=== PATIENT | female | born 1945 | race Caucasian/White ===

== ENCOUNTER 2023-02-14 10:49 | Inpatient (IN) | payer OTHER ==
[~2023-02-14] VITALS: Ht 162.6 cm; Wt 82.6 kg
[2023-02-14 11:04] VITALS: BP 112/60; PULSE 89; RESP 16; TEMP 97.4; O2SAT 98
[2023-02-14] MEDS ORDERED: PIPERACILLIN/TAZOBACTAM 3.375 GM in DEXT 5% MINI-BAG PLUS 50 ML IV ONE (11:10)
[2023-02-14] MEDS: NACL 0.9% 2,000 ML IV SCH ×2 (11:13→13:08)
[2023-02-14] MEDS ORDERED: PIPERACILLIN/TAZOBACTAM 3.375 GM VIAL IV ONE (11:15)
[2023-02-14 11:38] LABS: BASOPHILS # (AUTO) 0.1 K/uL (0.00-0.22); BASOPHILS % (AUTO) 0.5 % (0.0-2.0); HEMATOCRIT 34.7 % (36-48); HEMOGLOBIN 11.2 g/dL (12.0-16.0); LYMPHOCYTES # (AUTO) 2.5 K/uL (2.5-16.5); MEAN CORPUSCULAR HEMOGLOBIN 28 pg (27-31); MEAN CORPUSCULAR HGB CONC 32 g/dL (33-37); MONOCYTES # (AUTO) 0.8 K/uL (0.8-1.0); MONOCYTES % (AUTO) 5.1 % (1.7-9.3); NEUTROPHILS # (AUTO) 12.4 K/uL (1.8-7.7); NEUTROPHILS % (AUTO) 78.4 % (42.2-75.2); PLATELET COUNT (AUTO) 184 K/uL (140-450); RED BLOOD CELL COUNT(AUTO) 4.04 MIL/uL (4.20-5.40); RED CELL DISTRIBUTION WIDTH 14.7 % (11.6-13.7); WHITE BLOOD COUNT (AUTO) 15.8 K/uL (4.8-10.8)
[2023-02-14 11:57] LABS: INR 1.11 (0.8-1.2); PARTIAL THROMBOPLASTIN TIME 35.7 secs (22-35.6); PROTHROMBIN TIME 11.5 secs (10.8-13.4)
[2023-02-14 12:00] LABS: ALANINE AMINOTRANSFERASE 17 U/L (12-78); ALBUMIN 2.6 g/dL (3.4-5.0); ALKALINE PHOSPHATASE 57 U/L (50-136); ANION GAP 14.2 (8-16); ASPARTATE AMINOTRANSFERASE 23 U/L (15-37); CALCIUM 9.5 mg/dL (8.5-10.1); CARBON DIOXIDE 24.4 mmol/L (21-32); CHLORIDE 101 mmol/L (98-107); CREATININE 1.6 mg/dL (0.6-1.3); GLUCOSE 131 mg/dL (74-106); POTASSIUM 3.6 mmol/L (3.5-5.1); SODIUM SERUM 136 mmol/L (136-145); TOTAL BILIRUBIN 0.5 mg/dL (0.0-1.0); TOTAL PROTEIN, SERUM 7.1 g/dL (6.4-8.2); UREA NITROGEN, BLOOD 36 mg/dL (7-18)
[2023-02-14 12:25] LABS: LACTIC ACID 3.4 mmol/L (0.4-2.0)
[2023-02-14] MEDS ORDERED: KCL 20 MEQ IN 100 mL PREMIX 200 ML IV PRN (13:00)
[2023-02-14] MEDS ORDERED: HYDROcodone/APAP 5/325 MG 1 TAB TAB PO PRN (13:00)
[2023-02-14] MEDS ORDERED: ACETAMINOPHEN 325 MG TAB PO PRN (13:00)
[2023-02-14] MEDS ORDERED: MORPHINE SULFATE 2 MG/ML SYR IVP PRN (13:00)
[2023-02-14] MEDS ORDERED: MAGNESIUM OXIDE 400 MG TAB PO PRN (13:00)
[2023-02-14] MEDS ORDERED: POTASSIUM CHLORIDE 10 MEQ TABER PO PRN (13:00)
[2023-02-14] MEDS ORDERED: ONDANSETRON 4 MG/2 ML VIAL IVP PRN (13:00)
[2023-02-14] MEDS ORDERED: ASPIRIN 81 MG TAB.CHEW PO ONE (13:00)
[2023-02-14] MEDS: NACL 0.9% 1,000 ML IV SCH (13:00)
[2023-02-14 13:04] VITALS: O2SAT 96
[2023-02-14] MEDS ORDERED: DEXTROSE 50% 50 ML SYR IVP PRN (13:05)
[2023-02-14] MEDS ORDERED: ASCO-5 PO (14:12)
[2023-02-14] MEDS ORDERED: GLUC1VIA IJ (14:12)
[2023-02-14] MEDS ORDERED: METF-713 PO (14:12)
[2023-02-14] MEDS ORDERED: LOSA-272 PO (14:12)
[2023-02-14] MEDS ORDERED: NUTR30LI3 PO (14:12)
[2023-02-14] MEDS ORDERED: APIX5TAB PO (14:12)
[2023-02-14] MEDS ORDERED: INSU100S22 SUBQ (14:12)
[2023-02-14] MEDS ORDERED: MIRT-120 PO (14:12)
[2023-02-14] MEDS ORDERED: DOCU-2 PO (14:12)
[2023-02-14] MEDS ORDERED: METO100T22 PO (14:12)
[2023-02-14] MEDS ORDERED: GLUC1PDS1 IJ (14:12)
[2023-02-14] MEDS ORDERED: [UNRECOGNIZED DRUG - CODE] IV (14:12)
[2023-02-14] MEDS ORDERED: INSU-1165 SUBQ (14:12)
[2023-02-14] MEDS ORDERED: BISA-246 RC (14:12)
[2023-02-14] MEDS ORDERED: [UNRECOGNIZED DRUG - CODE] PO (14:12)
[2023-02-14] MEDS ORDERED: MAGN400S60 PO (14:12)
[2023-02-14] MEDS ORDERED: ACET-10509 PO (14:12)
[2023-02-14] MEDS ORDERED: FLEPED RC (14:12)
[2023-02-14] MEDS ORDERED: CRAN400C2 PO (14:12)
[2023-02-14] MEDS ORDERED: [UNRECOGNIZED DRUG - CODE] PO (14:12)
[2023-02-14] MEDS ORDERED: LACT500C2 PO (14:12)
[2023-02-14 14:35] LABS: BILIRUBIN,URINE NEGATIVE (NEGATIVE); BLOOD, URINE 3+ (NEGATIVE); LEUKOCYTE ESTERASE ,URINE 2+ (NEGATIVE); NITRITE, URINE POSITIVE (NEGATIVE); PROTEIN,URINE 2+ (NEGATIVE); UGLUCOSE NEGATIVE (NEGATIVE); UROBILINOGEN,URINE 0.2 EU/dL (0.2 - 1)
[2023-02-14 14:45] LABS: APPEARANCE,URINE CLOUDY (CLEAR); COLOR,URINE AMBER (YELLOW)
[2023-02-14 14:50] LABS: BACTERIA,URINE 10-30 (MOD) /HPF (None Seen); MUCUS,URINE 1+ /LPF (None Seen); RBC,URINE 11-20 (MOD) /HPF (0-5); SQUAMOUS EPITHELIAL CELL,UR 0-3 (FEW) /LPF (0-3 (FEW))
[2023-02-14] MEDS ORDERED: NACL 0.9% 500 ML IV SCH (15:50)
[2023-02-14 16:00] VITALS: BP 113/58; PULSE 103; PULSE 139; RESP 18; TEMP 98.9; O2SAT 98
[2023-02-14 16:30] VITALS: PULSE 98; RESP 18; O2SAT 98
[2023-02-14] MEDS: BLOOD GLUCOSE MONITORING 1 DEV DEV FS SCH ×2 (16:30→21:24)
[2023-02-14] MEDS ORDERED: METOPROLOL 5 MG/5 ML VIAL IV PRN (17:45)
[2023-02-14 20:00] VITALS: BP 72/40; PULSE 125; PULSE 126; RESP 22; TEMP 98.9; O2SAT 93; O2SAT 94
[2023-02-14 20:09] VITALS: PULSE 129; RESP 22; O2SAT 93
[2023-02-14] MEDS ORDERED: NACL 0.9% 500 ML IV ONE (20:50)
[2023-02-14] MEDS ORDERED: MIDODRINE 5 MG TAB PO ONE (20:52)
[2023-02-14] MEDS ORDERED: METOPROLOL 50 MG TAB PO SCH (21:00)
[2023-02-14] MEDS ORDERED: APIXABAN 2.5 MG TAB PO SCH (21:00)
[2023-02-14] MEDS: PIPERACILLIN/TAZOBACTAM 2.25 GM in DEXTROSE 5% 50 ML IV SCH (21:16)
[2023-02-14] MEDS: MIRTAZAPINE 15 MG TAB PO SCH (21:17)
[2023-02-14] MEDS ORDERED: MIDODRINE 5 MG TAB ONE (22:39)
[2023-02-14] MEDS ORDERED: ALBUMIN HUMAN 25% 100 ML IV ONE (23:40)
[2023-02-15] VITALS (37 sets, daily range): BP systolic 59–155; BP diastolic 23–79; PULSE 8–125; RESP 16–32; TEMP 36.4; O2SAT 92–100
[2023-02-15] MEDS ORDERED: NOREPINEPHRINE 4 MG/4 ML VIAL IV ONE ×2 (01:12→05:37)
[2023-02-15] MEDS: NOREPINEPHRINE 4 MG in DEXTROSE 5% 250 ML IV PRN ×5 (01:15→23:08)
[2023-02-15] MEDS: NACL 0.9% 1,000 ML IV SCH ×2 (01:30→14:45)
[2023-02-15] MEDS ORDERED: HEPARIN PER PHARMACY MC PRN (02:25)
[2023-02-15] MEDS ORDERED: hePARIN / DEXT 5% PREMIX 250 ML IV SCH (02:25)
[2023-02-15] MEDS: methylPREDNISolone SS 40 MG/ML VIAL IVP SCH ×3 (03:00→21:09)
[2023-02-15] MEDS ORDERED: VASOPRESSIN 20 UNITS/ML VIAL ONE (03:33)
[2023-02-15] MEDS: VASOPRESSIN 20 UNITS in NACL 0.9% 250 ML IV SCH ×2 (03:43→12:18)
[2023-02-15] MEDS: PIPERACILLIN/TAZOBACTAM 2.25 GM in DEXTROSE 5% 50 ML IV SCH ×3 (05:14→21:08)
[2023-02-15 06:36] LABS: HEMATOCRIT 32.4 % (36-48); HEMOGLOBIN 10.4 g/dL (12.0-16.0); MEAN CORPUSCULAR HEMOGLOBIN 28 pg (27-31); MEAN CORPUSCULAR HGB CONC 32 g/dL (33-37); MEAN CORPUSCULAR VOLUME 86.8 fL (80-94); PLATELET COUNT (AUTO) 165 K/uL (140-450); RED BLOOD CELL COUNT(AUTO) 3.73 MIL/uL (4.20-5.40); RED CELL DISTRIBUTION WIDTH 15.1 % (11.6-13.7); WHITE BLOOD COUNT (AUTO) 20.2 K/uL (4.8-10.8)
[2023-02-15 06:42] LABS: APPEARANCE,URINE CLEAR (CLEAR); BILIRUBIN,URINE NEGATIVE (NEGATIVE); BLOOD, URINE 3+ (NEGATIVE); COLOR,URINE YELLOW (YELLOW); LEUKOCYTE ESTERASE ,URINE 3+ (NEGATIVE); NITRITE, URINE POSITIVE (NEGATIVE); PH,URINE 7.5 (5.0-9.0); PROTEIN,URINE 3+ (NEGATIVE); UGLUCOSE NEGATIVE (NEGATIVE); UROBILINOGEN,URINE 0.2 EU/dL (0.2 - 1)
[2023-02-15 06:56] LABS: ALANINE AMINOTRANSFERASE 15 U/L (12-78); ALBUMIN 2.8 g/dL (3.4-5.0); ALKALINE PHOSPHATASE 47 U/L (50-136); ANION GAP 21.9 (8-16); ASPARTATE AMINOTRANSFERASE 36 U/L (15-37); CARBON DIOXIDE 17.5 mmol/L (21-32); CHLORIDE 104 mmol/L (98-107); CREATININE 1.7 mg/dL (0.6-1.3); GLUCOSE 185 mg/dL (74-106); POTASSIUM 3.4 mmol/L (3.5-5.1); SODIUM SERUM 140 mmol/L (136-145); TOTAL BILIRUBIN 0.8 mg/dL (0.0-1.0); TOTAL PROTEIN, SERUM 6.6 g/dL (6.4-8.2); UREA NITROGEN, BLOOD 36 mg/dL (7-18)
[2023-02-15 06:59] LABS: MAGNESIUM 0.8 mg/dL (1.8-2.4)
[2023-02-15 07:02] LABS: BASOPHILS % (MANUAL) 0 % (0-2); EOSINOPHILS % (MANUAL) 0 % (0-4); LYMPHOCYTES % (MANUAL) 20 % (20-46); METAMYELOCYTES % 4 % (0-0); MONOCYTES % (MANUAL) 3 % (5-12); MYELOCYTES % 2 % (0-0); PLATELET ESTIMATE ADEQUATE; SMUDGE CELLS FEW
[2023-02-15 07:03] LABS: BURR CELLS 2+; POIKILOCYTOSIS 1+
[2023-02-15] MEDS: MAG SULF 2000 MG/WATER PREMIX 50 ML IV PRN (07:10)
[2023-02-15] MEDS: BLOOD GLUCOSE MONITORING 1 DEV DEV FS SCH ×4 (07:30→21:19)
[2023-02-15 07:38] LABS: BACTERIA,URINE 2+ /HPF (None Seen); RBC,URINE 20-50 /HPF (0-5); SQUAMOUS EPITHELIAL CELL,UR 4-10 (MOD) /LPF (0-3 (FEW)); WBC,URINE 80-100 /HPF (0-5)
[2023-02-15] MEDS: TAMSULOSIN 0.4 MG CAP PO SCH (08:30)
[2023-02-15] MEDS: ATORVASTATIN 20 MG TAB PO SCH (09:00)
[2023-02-15] MEDS: INSULIN LANTUS 100 UNITS/ML 10 ML VIAL SUBQ SCH (09:00)
[2023-02-15] MEDS: ASPIRIN 81 MG TAB.CHEW PO SCH (09:00)
[2023-02-15] MEDS: MIDODRINE 5 MG TAB PO SCH ×3 (09:00→16:57)
[2023-02-15] MEDS: INSULIN LISPRO SLIDING SCALE 100 UNITS/ML VIAL SUBQ PRN ×3 (09:05→16:43)
[2023-02-15] MEDS: PANTOPRAZOLE 40 MG INJ VIAL IVP SCH (09:17)
[2023-02-15] MEDS ORDERED: KCL 20 MEQ IN 100 mL PREMIX 200 ML IV ONE (18:00)
[2023-02-15] MEDS: MIRTAZAPINE 15 MG TAB PO SCH (21:10)
[2023-02-16] VITALS (26 sets, daily range): BP systolic 92–141; BP diastolic 53–86; PULSE 67–99; RESP 15–29; TEMP 96.2–97.8; O2SAT 92–100
[2023-02-16] MEDS ORDERED: VASOPRESSIN 20 UNITS/ML VIAL ONE ×3 (04:36→21:38)
[2023-02-16] MEDS ORDERED: VASOPRESSIN 40 UNITS in NACL 0.9% 250 ML IV SCH ×2 (04:50→06:00)
[2023-02-16] MEDS: PIPERACILLIN/TAZOBACTAM 2.25 GM in DEXTROSE 5% 50 ML IV SCH (05:42)
[2023-02-16] MEDS: NOREPINEPHRINE 4 MG in DEXTROSE 5% 250 ML IV PRN ×3 (05:58→16:42)
[2023-02-16] MEDS: INSULIN LISPRO SLIDING SCALE 100 UNITS/ML VIAL SUBQ PRN ×3 (06:10→21:22)
[2023-02-16] MEDS: BLOOD GLUCOSE MONITORING 1 DEV DEV FS SCH ×5 (06:13→21:50)
[2023-02-16 07:36] LABS: ALANINE AMINOTRANSFERASE 60 U/L (12-78); ALBUMIN 2.2 g/dL (3.4-5.0); ALKALINE PHOSPHATASE 58 U/L (50-136); ANION GAP 18.9 (8-16); ASPARTATE AMINOTRANSFERASE 120 U/L (15-37); CALCIUM 8.5 mg/dL (8.5-10.1); CARBON DIOXIDE 15.2 mmol/L (21-32); CHLORIDE 103 mmol/L (98-107); CREATININE 1.7 mg/dL (0.6-1.3); GLUCOSE 230 mg/dL (74-106); MAGNESIUM 1.3 mg/dL (1.8-2.4); POTASSIUM 4.1 mmol/L (3.5-5.1); SODIUM SERUM 133 mmol/L (136-145); TOTAL BILIRUBIN 0.6 mg/dL (0.0-1.0); TOTAL PROTEIN, SERUM 6.1 g/dL (6.4-8.2); UREA NITROGEN, BLOOD 38 mg/dL (7-18)
[2023-02-16 07:41] LABS: HEMATOCRIT 33.1 % (36-48); HEMOGLOBIN 10.6 g/dL (12.0-16.0); MEAN CORPUSCULAR HEMOGLOBIN 28 pg (27-31); MEAN CORPUSCULAR HGB CONC 32 g/dL (33-37); MEAN CORPUSCULAR VOLUME 86.1 fL (80-94); PLATELET COUNT (AUTO) 155 K/uL (140-450); RED BLOOD CELL COUNT(AUTO) 3.84 MIL/uL (4.20-5.40); RED CELL DISTRIBUTION WIDTH 15.5 % (11.6-13.7)
[2023-02-16 07:43] LABS: WHITE BLOOD COUNT (AUTO) 37.6 K/uL (4.8-10.8)
[2023-02-16 08:25] LABS: BASOPHILS % (MANUAL) 0 % (0-2); EOSINOPHILS % (MANUAL) 1 % (0-4); LYMPHOCYTES % (MANUAL) 4 % (20-46); MONOCYTES % (MANUAL) 5 % (5-12); PLATELET ESTIMATE ADEQUATE
[2023-02-16 08:45] LABS: INR 1.49 (0.8-1.2); PROTHROMBIN TIME 15.3 secs (10.8-13.4)
[2023-02-16 08:53] LABS: PARTIAL THROMBOPLASTIN TIME > 150.0 secs (22-35.6)
[2023-02-16] MEDS ORDERED: MEROPENEM 1,000 MG in NACL 0.9% 50 ML IV SCH ×2 (09:00→21:00)
[2023-02-16] MEDS: MIDODRINE 5 MG TAB PO SCH ×4 (09:00→17:00)
[2023-02-16] MEDS: ATORVASTATIN 20 MG TAB PO SCH (09:15)
[2023-02-16] MEDS: TAMSULOSIN 0.4 MG CAP PO SCH (09:15)
[2023-02-16] MEDS: PANTOPRAZOLE 40 MG INJ VIAL IVP SCH (09:16)
[2023-02-16] MEDS: methylPREDNISolone SS 40 MG/ML VIAL IVP SCH ×2 (09:16→21:00)
[2023-02-16] MEDS: INSULIN LANTUS 100 UNITS/ML 10 ML VIAL SUBQ SCH (09:24)
[2023-02-16] MEDS: ASPIRIN 81 MG TAB.CHEW PO SCH (09:27)
[2023-02-16] MEDS: MAG SULF 2000 MG/WATER PREMIX 50 ML IV PRN ×2 (09:59→15:32)
[2023-02-16] MEDS ORDERED: NOREPINEPHRINE 4 MG/4 ML VIAL IV ONE ×2 (10:45→22:33)
[2023-02-16] MEDS ORDERED: LIDOCAINE MPF 1% 10 ML ONE (12:51)
[2023-02-16] MEDS ORDERED: MIDAZOLAM 2 MG/2 ML VIAL ONE ×2 (13:14→13:55)
[2023-02-16] MEDS ORDERED: LIDOCAINE MPF 1% 5 ML ONE (13:33)
[2023-02-16] MEDS ORDERED: LIDOCAINE MPF 1% 15 ML ONE (13:41)
[2023-02-16] MEDS ORDERED: fentaNYL citrate 0.05 MG/ML VIAL ONE ×2 (13:49→14:11)
[2023-02-16] MEDS: NACL 0.9% 1,000 ML IV SCH ×2 (15:00→20:59)
[2023-02-16] MEDS ORDERED: LIDOCAINE 1% 500 MG/ 50 ML VIAL INJ ONE (15:35)
[2023-02-16] MEDS ORDERED: MIDAZOLAM 2 MG/2 ML VIAL IVP ONE (15:50)
[2023-02-16] MEDS ORDERED: fentaNYL citrate 0.05 MG/ML VIAL IVP ONE (16:10)
[2023-02-16] MEDS: MIRTAZAPINE 15 MG TAB PO SCH (21:00)
[2023-02-16] MEDS ORDERED: LEVOFLOXACIN 250 MG/D5 PREMIX 50 ML IV SCH (21:05)
[2023-02-16] MEDS ORDERED: AMIKACIN 500 MG in DEXTROSE 5% 100 ML IV SCH (21:20)
[2023-02-17] VITALS (26 sets, daily range): BP systolic 84–122; BP diastolic 48–101; PULSE 73–110; RESP 13–27; TEMP 96.1–98.7; O2SAT 94–100
[2023-02-17] MEDS: NOREPINEPHRINE 8 MG in DEXTROSE 5% 250 ML IV PRN ×3 (02:29→20:44)
[2023-02-17] MEDS: NACL 0.9% 1,000 ML IV SCH ×3 (03:30→22:41)
[2023-02-17 05:40] LABS: BASOPHILS % (AUTO) 0.1 % (0.0-2.0); EOSINOPHILS # (AUTO) 0.1 K/uL (0-0.4); EOSINOPHILS % (AUTO) 0.5 % (0.0-4.0); HEMATOCRIT 24.5 % (36-48); LYMPHOCYTES % (AUTO) 3.6 % (20.5-51.1); MEAN CORPUSCULAR HEMOGLOBIN 28 pg (27-31); MEAN CORPUSCULAR HGB CONC 33 g/dL (33-37); MEAN CORPUSCULAR VOLUME 84.2 fL (80-94); MONOCYTES # (AUTO) 0.4 K/uL (0.8-1.0); MONOCYTES % (AUTO) 1.3 % (1.7-9.3); NEUTROPHILS # (AUTO) 27.1 K/uL (1.8-7.7); NEUTROPHILS % (AUTO) 94.5 % (42.2-75.2); PLATELET COUNT (AUTO) 129 K/uL (140-450); RED BLOOD CELL COUNT(AUTO) 2.92 MIL/uL (4.20-5.40); RED CELL DISTRIBUTION WIDTH 15.7 % (11.6-13.7)
[2023-02-17 05:44] LABS: WHITE BLOOD COUNT (AUTO) 28.6 K/uL (4.8-10.8)
[2023-02-17 05:47] LABS: ALANINE AMINOTRANSFERASE 92 U/L (12-78); ALKALINE PHOSPHATASE 64 U/L (50-136); ANION GAP 16.7 (8-16); ASPARTATE AMINOTRANSFERASE 122 U/L (15-37); CARBON DIOXIDE 16.2 mmol/L (21-32); CHLORIDE 101 mmol/L (98-107); POTASSIUM 3.9 mmol/L (3.5-5.1); SODIUM SERUM 130 mmol/L (136-145); TOTAL BILIRUBIN 0.5 mg/dL (0.0-1.0); TOTAL PROTEIN, SERUM 5.2 g/dL (6.4-8.2)
[2023-02-17] MEDS ORDERED: AMIKACIN 500 MG/2 ML VIAL IV ONE (06:56)
[2023-02-17 07:02] LABS: ALBUMIN 1.9 g/dL (3.4-5.0); CREATININE 1.9 mg/dL (0.6-1.3); UREA NITROGEN, BLOOD 45 mg/dL (7-18)
[2023-02-17] MEDS ORDERED: VASOPRESSIN 40 UNITS in NACL 0.9% 250 ML IV SCH (07:35)
[2023-02-17 07:37] LABS: MAGNESIUM 2.6 mg/dL (1.8-2.4)
[2023-02-17] MEDS ORDERED: AMIKACIN PER PHARMACY MC PRN (07:40)
[2023-02-17] MEDS ORDERED: MEROPENEM 500 MG in NACL 0.9% 50 ML IV SCH (09:00)
[2023-02-17] MEDS: ASPIRIN 81 MG TAB.CHEW PO SCH ×2 (09:00→09:12)
[2023-02-17] MEDS: BLOOD GLUCOSE MONITORING 1 DEV DEV FS SCH ×4 (09:05→20:38)
[2023-02-17] MEDS: INSULIN LISPRO SLIDING SCALE 100 UNITS/ML VIAL SUBQ PRN (09:08)
[2023-02-17] MEDS: PANTOPRAZOLE 40 MG INJ VIAL IVP SCH (09:11)
[2023-02-17] MEDS: methylPREDNISolone SS 40 MG/ML VIAL IVP SCH ×2 (09:12→20:42)
[2023-02-17] MEDS: ATORVASTATIN 20 MG TAB PO SCH (09:12)
[2023-02-17] MEDS: TAMSULOSIN 0.4 MG CAP PO SCH (09:12)
[2023-02-17] MEDS: MIDODRINE 5 MG TAB PO SCH ×3 (09:13→17:47)
[2023-02-17] MEDS: INSULIN LANTUS 100 UNITS/ML 10 ML VIAL SUBQ SCH (11:15)
[2023-02-17] MEDS ORDERED: ALBUMIN HUMAN 5 % 250 ML IV ONE (11:30)
[2023-02-17] MEDS: VASOPRESSIN 40 UNITS in NACL 0.9% 250 ML IV PRN (15:24)
[2023-02-17] MEDS: MEROPENEM 1,000 MG in NACL 0.9% 50 ML IV SCH (20:42)
[2023-02-17] MEDS: MIRTAZAPINE 15 MG TAB PO SCH (20:43)
[2023-02-18] VITALS (31 sets, daily range): BP systolic 96–139; BP diastolic 51–91; PULSE 69–122; RESP 14–21; TEMP 96.5–97.6; O2SAT 97–100
[2023-02-18 05:24] LABS: BASOPHILS % (AUTO) 0.1 % (0.0-2.0); EOSINOPHILS # (AUTO) 0.1 K/uL (0-0.4); EOSINOPHILS % (AUTO) 0.2 % (0.0-4.0); HEMATOCRIT 21.4 % (36-48); LYMPHOCYTES # (AUTO) 0.9 K/uL (2.5-16.5); LYMPHOCYTES % (AUTO) 3.2 % (20.5-51.1); MEAN CORPUSCULAR HEMOGLOBIN 27 pg (27-31); MEAN CORPUSCULAR HGB CONC 32 g/dL (33-37); MEAN CORPUSCULAR VOLUME 83.7 fL (80-94); MONOCYTES # (AUTO) 0.2 K/uL (0.8-1.0); MONOCYTES % (AUTO) 0.9 % (1.7-9.3); NEUTROPHILS # (AUTO) 25.8 K/uL (1.8-7.7); NEUTROPHILS % (AUTO) 95.6 % (42.2-75.2); PLATELET COUNT (AUTO) 107 K/uL (140-450); RED BLOOD CELL COUNT(AUTO) 2.56 MIL/uL (4.20-5.40); RED CELL DISTRIBUTION WIDTH 15.6 % (11.6-13.7)
[2023-02-18 05:27] LABS: HEMOGLOBIN 6.9 g/dL (12.0-16.0)
[2023-02-18 06:03] LABS: ALANINE AMINOTRANSFERASE 66 U/L (12-78); ALBUMIN 2.1 g/dL (3.4-5.0); ALKALINE PHOSPHATASE 68 U/L (50-136); ANION GAP 15.4 (8-16); ASPARTATE AMINOTRANSFERASE 64 U/L (15-37); CALCIUM 8.3 mg/dL (8.5-10.1); CARBON DIOXIDE 16.4 mmol/L (21-32); CHLORIDE 102 mmol/L (98-107); CREATININE 2.1 mg/dL (0.6-1.3); GLUCOSE 160 mg/dL (74-106); MAGNESIUM 2.2 mg/dL (1.8-2.4); POTASSIUM 3.8 mmol/L (3.5-5.1); SODIUM SERUM 130 mmol/L (136-145); TOTAL BILIRUBIN 0.4 mg/dL (0.0-1.0); TOTAL PROTEIN, SERUM 5.1 g/dL (6.4-8.2); UREA NITROGEN, BLOOD 47 mg/dL (7-18)
[2023-02-18] MEDS: BLOOD GLUCOSE MONITORING 1 DEV DEV FS SCH ×4 (06:42→20:35)
[2023-02-18] MEDS: INSULIN LISPRO SLIDING SCALE 100 UNITS/ML VIAL SUBQ PRN ×4 (06:44→20:36)
[2023-02-18] MEDS: NACL 0.9% 1,000 ML IV SCH (06:45)
[2023-02-18] MEDS: NOREPINEPHRINE 8 MG in DEXTROSE 5% 250 ML IV PRN ×2 (08:47→18:16)
[2023-02-18] MEDS: INSULIN LANTUS 100 UNITS/ML 10 ML VIAL SUBQ SCH (09:15)
[2023-02-18] MEDS: methylPREDNISolone SS 40 MG/ML VIAL IVP SCH ×2 (09:17→20:07)
[2023-02-18] MEDS: PANTOPRAZOLE 40 MG INJ VIAL IVP SCH (09:17)
[2023-02-18] MEDS: ECOTRIN 81 MG TABEC PO SCH (09:18)
[2023-02-18] MEDS: MIDODRINE 5 MG TAB PO SCH ×3 (09:18→16:47)
[2023-02-18] MEDS: ATORVASTATIN 20 MG TAB PO SCH (09:19)
[2023-02-18] MEDS: MEROPENEM 1,000 MG in NACL 0.9% 50 ML IV SCH ×2 (09:20→20:07)
[2023-02-18] MEDS: TAMSULOSIN 0.4 MG CAP PO SCH (09:20)
[2023-02-18 11:18] LABS: HEMOGLOBIN 9.5 g/dL (12.0-16.0)
[2023-02-18] MEDS: VASOPRESSIN 40 UNITS in NACL 0.9% 250 ML IV PRN (12:39)
[2023-02-18] MEDS ORDERED: ALBUMIN HUMAN 5 % 250 ML IV ONE (18:00)
[2023-02-18] MEDS: MIRTAZAPINE 15 MG TAB PO SCH (20:07)
[2023-02-19] VITALS (27 sets, daily range): BP systolic 92–128; BP diastolic 50–76; PULSE 74–97; RESP 13–20; TEMP 97.1–98.5; O2SAT 98–100
[2023-02-19] MEDS: NACL 0.9% 1,000 ML IV SCH ×3 (02:54→21:13)
[2023-02-19 06:02] LABS: BASOPHILS % (AUTO) 0.1 % (0.0-2.0); EOSINOPHILS # (AUTO) 0.4 K/uL (0-0.4); EOSINOPHILS % (AUTO) 1.3 % (0.0-4.0); HEMATOCRIT 25.6 % (36-48); HEMOGLOBIN 8.4 g/dL (12.0-16.0); LYMPHOCYTES % (AUTO) 3.2 % (20.5-51.1); MEAN CORPUSCULAR HEMOGLOBIN 28 pg (27-31); MEAN CORPUSCULAR HGB CONC 33 g/dL (33-37); MEAN CORPUSCULAR VOLUME 84.9 fL (80-94); MONOCYTES # (AUTO) 0.2 K/uL (0.8-1.0); MONOCYTES % (AUTO) 0.6 % (1.7-9.3); NEUTROPHILS # (AUTO) 30.3 K/uL (1.8-7.7); NEUTROPHILS % (AUTO) 94.8 % (42.2-75.2); PLATELET COUNT (AUTO) 118 K/uL (140-450); RED BLOOD CELL COUNT(AUTO) 3.02 MIL/uL (4.20-5.40); RED CELL DISTRIBUTION WIDTH 15.3 % (11.6-13.7)
[2023-02-19 06:19] LABS: WHITE BLOOD COUNT (AUTO) 31.9 K/uL (4.8-10.8)
[2023-02-19 06:25] LABS: ALANINE AMINOTRANSFERASE 63 U/L (12-78); ALBUMIN 2.3 g/dL (3.4-5.0); ALKALINE PHOSPHATASE 85 U/L (50-136); ANION GAP 15.8 (8-16); ASPARTATE AMINOTRANSFERASE 52 U/L (15-37); CALCIUM 8.7 mg/dL (8.5-10.1); CHLORIDE 104 mmol/L (98-107); CREATININE 2.1 mg/dL (0.6-1.3); GLUCOSE 162 mg/dL (74-106); POTASSIUM 3.8 mmol/L (3.5-5.1); SODIUM SERUM 132 mmol/L (136-145); TOTAL BILIRUBIN 0.6 mg/dL (0.0-1.0); TOTAL PROTEIN, SERUM 3.9 g/dL (6.4-8.2); UREA NITROGEN, BLOOD 48 mg/dL (7-18)
[2023-02-19] MEDS: BLOOD GLUCOSE MONITORING 1 DEV DEV FS SCH ×4 (08:13→21:38)
[2023-02-19] MEDS: MEROPENEM 1,000 MG in NACL 0.9% 50 ML IV SCH ×2 (08:16→21:11)
[2023-02-19] MEDS: TAMSULOSIN 0.4 MG CAP PO SCH (08:17)
[2023-02-19] MEDS: PANTOPRAZOLE 40 MG INJ VIAL IVP SCH (08:17)
[2023-02-19] MEDS: MIDODRINE 5 MG TAB PO SCH ×3 (08:21→17:24)
[2023-02-19] MEDS: ECOTRIN 81 MG TABEC PO SCH (08:22)
[2023-02-19] MEDS: ATORVASTATIN 20 MG TAB PO SCH (08:22)
[2023-02-19] MEDS: methylPREDNISolone SS 40 MG/ML VIAL IVP SCH ×2 (08:22→21:11)
[2023-02-19] MEDS: INSULIN LISPRO SLIDING SCALE 100 UNITS/ML VIAL SUBQ PRN ×3 (08:24→17:22)
[2023-02-19] MEDS: INSULIN LANTUS 100 UNITS/ML 10 ML VIAL SUBQ SCH (08:25)
[2023-02-19] MEDS: NOREPINEPHRINE 8 MG in DEXTROSE 5% 250 ML IV PRN (11:52)
[2023-02-19] MEDS: VASOPRESSIN 40 UNITS in NACL 0.9% 250 ML IV PRN ×2 (12:18→15:00)
[2023-02-19] MEDS: MIRTAZAPINE 15 MG TAB PO SCH (21:12)
[2023-02-20] VITALS (26 sets, daily range): BP systolic 95–125; BP diastolic 55–72; PULSE 69–119; RESP 10–21; TEMP 96.9–97.8; O2SAT 93–100
[2023-02-20] MEDS: BLOOD GLUCOSE MONITORING 1 DEV DEV FS SCH ×4 (06:38→21:35)
[2023-02-20] MEDS: NACL 0.9% 1,000 ML IV SCH (08:20)
[2023-02-20] MEDS: TAMSULOSIN 0.4 MG CAP PO SCH (08:21)
[2023-02-20] MEDS: MEROPENEM 1,000 MG in NACL 0.9% 50 ML IV SCH ×2 (08:21→21:01)
[2023-02-20] MEDS: MIDODRINE 5 MG TAB PO SCH ×3 (08:22→17:52)
[2023-02-20] MEDS: ATORVASTATIN 20 MG TAB PO SCH (08:22)
[2023-02-20] MEDS: ECOTRIN 81 MG TABEC PO SCH (08:22)
[2023-02-20] MEDS: PANTOPRAZOLE 40 MG INJ VIAL IVP SCH (08:23)
[2023-02-20] MEDS: methylPREDNISolone SS 40 MG/ML VIAL IVP SCH ×2 (08:23→21:03)
[2023-02-20] MEDS: INSULIN LANTUS 100 UNITS/ML 10 ML VIAL SUBQ SCH (08:27)
[2023-02-20 10:02] LABS: HEMOGLOBIN 10.3 g/dL (12.0-16.0); MEAN CORPUSCULAR HEMOGLOBIN 28 pg (27-31); MEAN CORPUSCULAR HGB CONC 32 g/dL (33-37); MEAN CORPUSCULAR VOLUME 85.2 fL (80-94); PLATELET COUNT (AUTO) 182 K/uL (140-450); RED BLOOD CELL COUNT(AUTO) 3.75 MIL/uL (4.20-5.40); RED CELL DISTRIBUTION WIDTH 16.1 % (11.6-13.7)
[2023-02-20 10:09] LABS: WHITE BLOOD COUNT (AUTO) 43.2 K/uL (4.8-10.8)
[2023-02-20 10:19] LABS: ALANINE AMINOTRANSFERASE 51 U/L (12-78); ALBUMIN 2.3 g/dL (3.4-5.0); ALKALINE PHOSPHATASE 111 U/L (50-136); ANION GAP 15.4 (8-16); ASPARTATE AMINOTRANSFERASE 43 U/L (15-37); CALCIUM 8.8 mg/dL (8.5-10.1); CARBON DIOXIDE 17.3 mmol/L (21-32); CHLORIDE 109 mmol/L (98-107); CREATININE 2.1 mg/dL (0.6-1.3); GLUCOSE 96 mg/dL (74-106); MAGNESIUM 1.9 mg/dL (1.8-2.4); POTASSIUM 3.7 mmol/L (3.5-5.1); SODIUM SERUM 138 mmol/L (136-145); TOTAL BILIRUBIN 0.4 mg/dL (0.0-1.0); UREA NITROGEN, BLOOD 53 mg/dL (7-18)
[2023-02-20 10:28] LABS: BASOPHILS % (MANUAL) 0 % (0-2); BLASTS, MANUAL % 0 % (0-0); EOSINOPHILS % (MANUAL) 0 % (0-4); LYMPHOCYTES % (MANUAL) 6 % (20-46); METAMYELOCYTES % 0 % (0-0); MONOCYTES % (MANUAL) 1 % (5-12); MYELOCYTES % 0 % (0-0); OTHER CELLS,MANUAL % 0 (0-0); PLATELET ESTIMATE ADEQUATE; PROMYELOCYTES % 0 % (0-0)
[2023-02-20 10:29] LABS: ANISOCYTOSIS 1+; BURR CELLS 1+; OVALOCYTES 1+; SCHISTOCYTES 1+
[2023-02-20 15:51] LABS: INR 1.03 (0.8-1.2); PARTIAL THROMBOPLASTIN TIME 26.1 secs (22-35.6); PROTHROMBIN TIME 10.8 secs (10.8-13.4)
[2023-02-20] MEDS ORDERED: ALBUMIN HUMAN 5 % 250 ML IV ONE (17:10)
[2023-02-20] MEDS: ALBUMIN HUMAN 5 % 250 ML IV SCH ×2 (17:53→21:02)
[2023-02-20] MEDS: MIRTAZAPINE 15 MG TAB PO SCH (21:03)
[2023-02-21] VITALS (29 sets, daily range): BP systolic 85–139; BP diastolic 49–72; PULSE 77–125; RESP 12–19; TEMP 97.1–98.5; O2SAT 97–100
[2023-02-21] MEDS: NACL 0.9% 1,000 ML IV SCH ×3 (05:32→15:32)
[2023-02-21] MEDS: methylPREDNISolone SS 40 MG/ML VIAL IVP SCH ×2 (08:07→21:15)
[2023-02-21] MEDS: ECOTRIN 81 MG TABEC PO SCH (08:07)
[2023-02-21] MEDS: TAMSULOSIN 0.4 MG CAP PO SCH (08:07)
[2023-02-21] MEDS: MEROPENEM 1,000 MG in NACL 0.9% 50 ML IV SCH ×2 (08:07→21:16)
[2023-02-21] MEDS: BLOOD GLUCOSE MONITORING 1 DEV DEV FS SCH ×4 (08:07→21:00)
[2023-02-21] MEDS: PANTOPRAZOLE 40 MG INJ VIAL IVP SCH (08:07)
[2023-02-21] MEDS: MIDODRINE 5 MG TAB PO SCH ×3 (08:08→17:00)
[2023-02-21] MEDS: ATORVASTATIN 20 MG TAB PO SCH (08:08)
[2023-02-21] MEDS: INSULIN LANTUS 100 UNITS/ML 10 ML VIAL SUBQ SCH (08:19)
[2023-02-21] MEDS: NOREPINEPHRINE 8 MG in DEXTROSE 5% 250 ML IV PRN (08:24)
[2023-02-21 12:32] LABS: BASOPHILS % (AUTO) 0.1 % (0.0-2.0); HEMATOCRIT 27.5 % (36-48); LYMPHOCYTES # (AUTO) 0.9 K/uL (2.5-16.5); LYMPHOCYTES % (AUTO) 2.3 % (20.5-51.1); MEAN CORPUSCULAR HEMOGLOBIN 28 pg (27-31); MEAN CORPUSCULAR HGB CONC 33 g/dL (33-37); MEAN CORPUSCULAR VOLUME 84.6 fL (80-94); MONOCYTES # (AUTO) 0.2 K/uL (0.8-1.0); MONOCYTES % (AUTO) 0.5 % (1.7-9.3); NEUTROPHILS # (AUTO) 36.8 K/uL (1.8-7.7); NEUTROPHILS % (AUTO) 97.1 % (42.2-75.2); PLATELET COUNT (AUTO) 190 K/uL (140-450); RED BLOOD CELL COUNT(AUTO) 3.25 MIL/uL (4.20-5.40); RED CELL DISTRIBUTION WIDTH 15.8 % (11.6-13.7)
[2023-02-21 12:40] LABS: WHITE BLOOD COUNT (AUTO) 37.9 K/uL (4.8-10.8)
[2023-02-21 12:55] LABS: ALANINE AMINOTRANSFERASE 37 U/L (12-78); ALBUMIN 2.2 g/dL (3.4-5.0); ALKALINE PHOSPHATASE 98 U/L (50-136); ANION GAP 13.5 (8-16); ASPARTATE AMINOTRANSFERASE 36 U/L (15-37); CALCIUM 8.3 mg/dL (8.5-10.1); CARBON DIOXIDE 17.1 mmol/L (21-32); CHLORIDE 114 mmol/L (98-107); CREATININE 1.8 mg/dL (0.6-1.3); GLUCOSE 100 mg/dL (74-106); POTASSIUM 3.6 mmol/L (3.5-5.1); SODIUM SERUM 141 mmol/L (136-145); TOTAL BILIRUBIN 0.5 mg/dL (0.0-1.0); UREA NITROGEN, BLOOD 52 mg/dL (7-18)
[2023-02-21] MEDS: MIRTAZAPINE 15 MG TAB PO SCH (21:16)
[2023-02-22] VITALS (24 sets, daily range): BP systolic 90–138; BP diastolic 48–87; PULSE 73–133; RESP 14–27; TEMP 97.5–98.1; O2SAT 96–100
[2023-02-22] MEDS: NACL 0.9% 1,000 ML IV SCH ×3 (01:21→09:53)
[2023-02-22 05:40] LABS: HEMATOCRIT 24.2 % (36-48); MEAN CORPUSCULAR HEMOGLOBIN 28 pg (27-31); MEAN CORPUSCULAR HGB CONC 33 g/dL (33-37); MEAN CORPUSCULAR VOLUME 84.6 fL (80-94); PLATELET COUNT (AUTO) 218 K/uL (140-450); RED BLOOD CELL COUNT(AUTO) 2.87 MIL/uL (4.20-5.40); RED CELL DISTRIBUTION WIDTH 16.1 % (11.6-13.7)
[2023-02-22 05:47] LABS: WHITE BLOOD COUNT (AUTO) 28.4 K/uL (4.8-10.8)
[2023-02-22 05:52] LABS: ALANINE AMINOTRANSFERASE 33 U/L (12-78); ALBUMIN 1.9 g/dL (3.4-5.0); ALKALINE PHOSPHATASE 88 U/L (50-136); ANION GAP 13.2 (8-16); ASPARTATE AMINOTRANSFERASE 39 U/L (15-37); CARBON DIOXIDE 17.4 mmol/L (21-32); CHLORIDE 117 mmol/L (98-107); CREATININE 1.7 mg/dL (0.6-1.3); GLUCOSE 62 mg/dL (74-106); POTASSIUM 3.6 mmol/L (3.5-5.1); SODIUM SERUM 144 mmol/L (136-145); TOTAL BILIRUBIN 0.4 mg/dL (0.0-1.0); TOTAL PROTEIN, SERUM 4.5 g/dL (6.4-8.2); UREA NITROGEN, BLOOD 51 mg/dL (7-18)
[2023-02-22 06:10] LABS: BASOPHILS % (MANUAL) 0 % (0-2); EOSINOPHILS % (MANUAL) 0 % (0-4); LYMPHOCYTES % (MANUAL) 9 % (20-46); MONOCYTES % (MANUAL) 3 % (5-12); PLATELET ESTIMATE ADEQUATE; SMUDGE CELLS FEW
[2023-02-22 06:11] LABS: ANISOCYTOSIS 2+; BURR CELLS 3+; OVALOCYTES 1+; POIKILOCYTOSIS 2+
[2023-02-22] MEDS: BLOOD GLUCOSE MONITORING 1 DEV DEV FS SCH ×4 (07:30→21:38)
[2023-02-22] MEDS: PANTOPRAZOLE 40 MG INJ VIAL IVP SCH (08:45)
[2023-02-22] MEDS: MIDODRINE 5 MG TAB PO SCH ×3 (08:45→16:45)
[2023-02-22] MEDS: ATORVASTATIN 20 MG TAB PO SCH (08:45)
[2023-02-22] MEDS: TAMSULOSIN 0.4 MG CAP PO SCH (08:45)
[2023-02-22] MEDS: methylPREDNISolone SS 40 MG/ML VIAL IVP SCH ×2 (08:45→20:38)
[2023-02-22] MEDS: ECOTRIN 81 MG TABEC PO SCH (08:46)
[2023-02-22] MEDS: MEROPENEM 1,000 MG in NACL 0.9% 50 ML IV SCH ×2 (08:46→20:38)
[2023-02-22] MEDS: INSULIN LANTUS 100 UNITS/ML 10 ML VIAL SUBQ SCH (08:47)
[2023-02-22] MEDS: NACL 0.45% 1,000 ML IV SCH (15:05)
[2023-02-22] MEDS: MIRTAZAPINE 15 MG TAB PO SCH (20:36)
[2023-02-23] VITALS (8 sets, daily range): BP systolic 95–107; BP diastolic 46–61; PULSE 76–97; RESP 14–20; TEMP 97.3–98.4; O2SAT 96–100
[2023-02-23 05:53] LABS: ALANINE AMINOTRANSFERASE 30 U/L (12-78); ALBUMIN 1.7 g/dL (3.4-5.0); ALKALINE PHOSPHATASE 88 U/L (50-136); ASPARTATE AMINOTRANSFERASE 35 U/L (15-37); CALCIUM 8.1 mg/dL (8.5-10.1); CARBON DIOXIDE 17.7 mmol/L (21-32); CHLORIDE 117 mmol/L (98-107); CREATININE 1.4 mg/dL (0.6-1.3); GLUCOSE 160 mg/dL (74-106); POTASSIUM 3.7 mmol/L (3.5-5.1); SODIUM SERUM 144 mmol/L (136-145); TOTAL BILIRUBIN 0.6 mg/dL (0.0-1.0); TOTAL PROTEIN, SERUM 4.5 g/dL (6.4-8.2); UREA NITROGEN, BLOOD 50 mg/dL (7-18)
[2023-02-23 05:54] LABS: HEMOGLOBIN 7.9 g/dL (12.0-16.0); LYMPHOCYTES # (AUTO) 0.7 K/uL (2.5-16.5); PLATELET COUNT (AUTO) 208 K/uL (140-450); RED CELL DISTRIBUTION WIDTH 16.3 % (11.6-13.7)
[2023-02-23 06:08] LABS: HEMATOCRIT 24.1 % (36-48); LYMPHOCYTES % (AUTO) 2.7 % (20.5-51.1); MEAN CORPUSCULAR HEMOGLOBIN 28 pg (27-31); MEAN CORPUSCULAR HGB CONC 33 g/dL (33-37); MEAN CORPUSCULAR VOLUME 85.4 fL (80-94); MONOCYTES # (AUTO) 0.5 K/uL (0.8-1.0); NEUTROPHILS # (AUTO) 26.1 K/uL (1.8-7.7); NEUTROPHILS % (AUTO) 95.3 % (42.2-75.2); RED BLOOD CELL COUNT(AUTO) 2.82 MIL/uL (4.20-5.40)
[2023-02-23 06:24] LABS: WHITE BLOOD COUNT (AUTO) 27.4 K/uL (4.8-10.8)
[2023-02-23] MEDS: NACL 0.45% 1,000 ML IV SCH (06:36)
[2023-02-23] MEDS: BLOOD GLUCOSE MONITORING 1 DEV DEV FS SCH ×4 (07:49→20:23)
[2023-02-23] MEDS: ECOTRIN 81 MG TABEC PO SCH (08:22)
[2023-02-23] MEDS: TAMSULOSIN 0.4 MG CAP PO SCH (08:22)
[2023-02-23] MEDS: MIDODRINE 5 MG TAB PO SCH ×3 (08:22→16:48)
[2023-02-23] MEDS: methylPREDNISolone SS 40 MG/ML VIAL IVP SCH ×2 (08:22→20:06)
[2023-02-23] MEDS: ATORVASTATIN 20 MG TAB PO SCH (08:23)
[2023-02-23] MEDS: PANTOPRAZOLE 40 MG INJ VIAL IVP SCH (08:23)
[2023-02-23] MEDS: MEROPENEM 1,000 MG in NACL 0.9% 50 ML IV SCH ×2 (08:24→20:06)
[2023-02-23] MEDS: INSULIN LANTUS 100 UNITS/ML 10 ML VIAL SUBQ SCH (08:38)
[2023-02-23] MEDS ORDERED: LORazepam 2 MG/ML VIAL IM/IVP PRN (13:55)
[2023-02-23] MEDS ORDERED: phenoL 1.4% SPRAY 20 ML BTL MM PRN (13:55)
[2023-02-23] MEDS: INSULIN LISPRO SLIDING SCALE 100 UNITS/ML VIAL SUBQ PRN (16:48)
[2023-02-23] MEDS: MIRTAZAPINE 15 MG TAB PO SCH (20:06)
[2023-02-24] VITALS (10 sets, daily range): BP systolic 100–116; BP diastolic 47–63; PULSE 6–81; RESP 12–20; TEMP 97.1–98.8; O2SAT 96–100
[2023-02-24 05:20] LABS: HEMATOCRIT 24.7 % (36-48); HEMOGLOBIN 8.2 g/dL (12.0-16.0); LYMPHOCYTES # (AUTO) 0.9 K/uL (2.5-16.5); LYMPHOCYTES % (AUTO) 3.4 % (20.5-51.1); MEAN CORPUSCULAR HEMOGLOBIN 28 pg (27-31); MEAN CORPUSCULAR HGB CONC 33 g/dL (33-37); MEAN CORPUSCULAR VOLUME 84.5 fL (80-94); MONOCYTES # (AUTO) 0.6 K/uL (0.8-1.0); MONOCYTES % (AUTO) 2.5 % (1.7-9.3); NEUTROPHILS % (AUTO) 94.1 % (42.2-75.2); PLATELET COUNT (AUTO) 235 K/uL (140-450); RED BLOOD CELL COUNT(AUTO) 2.92 MIL/uL (4.20-5.40); RED CELL DISTRIBUTION WIDTH 15.8 % (11.6-13.7)
[2023-02-24 05:23] LABS: WHITE BLOOD COUNT (AUTO) 25.5 K/uL (4.8-10.8)
[2023-02-24] MEDS: BLOOD GLUCOSE MONITORING 1 DEV DEV FS SCH ×4 (07:46→20:40)
[2023-02-24] MEDS: MEROPENEM 1,000 MG in NACL 0.9% 50 ML IV SCH ×2 (08:05→22:34)
[2023-02-24] MEDS: ATORVASTATIN 20 MG TAB PO SCH (08:06)
[2023-02-24] MEDS: MIDODRINE 5 MG TAB PO SCH ×3 (08:06→17:16)
[2023-02-24] MEDS: TAMSULOSIN 0.4 MG CAP PO SCH (08:06)
[2023-02-24] MEDS: PANTOPRAZOLE 40 MG INJ VIAL IVP SCH (08:06)
[2023-02-24] MEDS: ECOTRIN 81 MG TABEC PO SCH (08:06)
[2023-02-24] MEDS: methylPREDNISolone SS 40 MG/ML VIAL IVP SCH ×2 (08:06→22:34)
[2023-02-24 08:53] LABS: ANION GAP 14.7 (8-16); CALCIUM 7.8 mg/dL (8.5-10.1); CARBON DIOXIDE 19.3 mmol/L (21-32); CHLORIDE 115 mmol/L (98-107); CREATININE 1.2 mg/dL (0.6-1.3); GLUCOSE 148 mg/dL (74-106); SODIUM SERUM 145 mmol/L (136-145); UREA NITROGEN, BLOOD 49 mg/dL (7-18)
[2023-02-24 08:59] LABS: ALANINE AMINOTRANSFERASE 26 U/L (12-78); ALBUMIN 1.8 g/dL (3.4-5.0); ALKALINE PHOSPHATASE 88 U/L (50-136); ASPARTATE AMINOTRANSFERASE 30 U/L (15-37); TOTAL BILIRUBIN 0.6 mg/dL (0.0-1.0); TOTAL PROTEIN, SERUM 4.9 g/dL (6.4-8.2)
[2023-02-24] MEDS: INSULIN LANTUS 100 UNITS/ML 10 ML VIAL SUBQ SCH (11:15)
[2023-02-24] MEDS: INSULIN LISPRO SLIDING SCALE 100 UNITS/ML VIAL SUBQ PRN (12:35)
[2023-02-24] MEDS: MIRTAZAPINE 15 MG TAB PO SCH (22:35)
[2023-02-25] VITALS: BP 115/53; PULSE 72; PULSE 83; RESP 16; TEMP 97.3; O2SAT 97
[2023-02-25 04:00] VITALS: BP 113/54; PULSE 59; PULSE 60; RESP 16; TEMP 97.5; O2SAT 100
[2023-02-25 07:00] LABS: BASOPHILS % (AUTO) 0.1 % (0.0-2.0); HEMATOCRIT 23.7 % (36-48); HEMOGLOBIN 7.8 g/dL (12.0-16.0); LYMPHOCYTES # (AUTO) 0.6 K/uL (2.5-16.5); LYMPHOCYTES % (AUTO) 3.4 % (20.5-51.1); MEAN CORPUSCULAR HEMOGLOBIN 28 pg (27-31); MEAN CORPUSCULAR HGB CONC 33 g/dL (33-37); MEAN CORPUSCULAR VOLUME 84.8 fL (80-94); MONOCYTES # (AUTO) 0.5 K/uL (0.8-1.0); MONOCYTES % (AUTO) 2.6 % (1.7-9.3); NEUTROPHILS # (AUTO) 17.5 K/uL (1.8-7.7); NEUTROPHILS % (AUTO) 93.9 % (42.2-75.2); PLATELET COUNT (AUTO) 243 K/uL (140-450); RED CELL DISTRIBUTION WIDTH 16.3 % (11.6-13.7); WHITE BLOOD COUNT (AUTO) 18.6 K/uL (4.8-10.8)
[2023-02-25 07:20] LABS: ALANINE AMINOTRANSFERASE 23 U/L (12-78); ALBUMIN 1.7 g/dL (3.4-5.0); ALKALINE PHOSPHATASE 82 U/L (50-136); ANION GAP 12.9 (8-16); ASPARTATE AMINOTRANSFERASE 26 U/L (15-37); CALCIUM 7.7 mg/dL (8.5-10.1); CARBON DIOXIDE 21.2 mmol/L (21-32); CHLORIDE 117 mmol/L (98-107); GLUCOSE 150 mg/dL (74-106); POTASSIUM 4.1 mmol/L (3.5-5.1); SODIUM SERUM 147 mmol/L (136-145); TOTAL BILIRUBIN 0.6 mg/dL (0.0-1.0); TOTAL PROTEIN, SERUM 4.7 g/dL (6.4-8.2); UREA NITROGEN, BLOOD 47 mg/dL (7-18)
[2023-02-25] MEDS: BLOOD GLUCOSE MONITORING 1 DEV DEV FS SCH ×2 (07:48→12:24)
[2023-02-25 08:00] VITALS: BP 145/60; PULSE 65; PULSE 67; PULSE 68; RESP 19; TEMP 96.4; O2SAT 99
[2023-02-25] MEDS: ATORVASTATIN 20 MG TAB PO SCH (08:40)
[2023-02-25] MEDS: ECOTRIN 81 MG TABEC PO SCH (08:40)
[2023-02-25] MEDS: TAMSULOSIN 0.4 MG CAP PO SCH (08:40)
[2023-02-25] MEDS ORDERED: NACL 0.45% 1,000 ML IV SCH (08:45)
[2023-02-25] MEDS: INSULIN LANTUS 100 UNITS/ML 10 ML VIAL SUBQ SCH (08:51)
[2023-02-25] MEDS: MIDODRINE 5 MG TAB PO SCH ×2 (08:52→12:25)
[2023-02-25 08:59] VITALS: PULSE 65; RESP 19; O2SAT 99
[2023-02-25] MEDS: PANTOPRAZOLE 40 MG INJ VIAL IVP SCH (09:17)
[2023-02-25] MEDS: MEROPENEM 1,000 MG in NACL 0.9% 50 ML IV SCH (09:17)
[2023-02-25] MEDS: methylPREDNISolone SS 40 MG/ML VIAL IVP SCH (09:17)
[2023-02-25 12:00] VITALS: BP 107/46; PULSE 68; PULSE 76; RESP 18; TEMP 97; O2SAT 97
[2023-02-25] MEDS: INSULIN LISPRO SLIDING SCALE 100 UNITS/ML VIAL SUBQ PRN (12:24)
[2023-02-25] MEDS ORDERED: MERO1VIA15 IV (16:05)
[2023-02-25 16:07] VITALS: BP 107/46; PULSE 76; RESP 18; TEMP 97
== END 2023-02-25 17:38 | DRG 720 ==
LOC: MED 10:49 → MTU 13:02 → MIC 23:54 → MTU 02-24 20:13
PROVIDERS: ADMIT Internal Medicine; ATTEND Internal Medicine
PROC: 02HV33Z Insertion of Infusion Device into Superior Vena Cava, Percutaneous Approach (ICD-10-PCS; 2023-02-15)
PROC: B548ZZA Ultrasonography of Superior Vena Cava, Guidance (ICD-10-PCS; 2023-02-15)
PROC: 0T903ZZ Drainage of Right Kidney, Percutaneous Approach (ICD-10-PCS; principal; 2023-02-16)
PROC: 30233N1 Transfusion of Nonautologous Red Blood Cells into Peripheral Vein, Percutaneous Approach (ICD-10-PCS; 2023-02-18)
DX: A41.51 Sepsis due to Escherichia coli [E. coli] (principal); J96.01 Acute respiratory failure with hypoxia; R65.21 Severe sepsis with septic shock; I21.A1 Myocardial infarction type 2; E44.0 Moderate protein-calorie malnutrition; I69.354 Hemiplegia and hemiparesis following cerebral infarction affecting left non-dominant side; I48.0 Paroxysmal atrial fibrillation; N13.6 Pyonephrosis; E11.9 Type 2 diabetes mellitus without complications; E78.5 Hyperlipidemia, unspecified; F32.A Depression, unspecified; Z16.12 Extended spectrum beta lactamase (ESBL) resistance; I10 Essential (primary) hypertension; Z93.6 Other artificial openings of urinary tract status; Z79.01 Long term (current) use of anticoagulants; Z79.899 Other long term (current) drug therapy; Z68.31 Body mass index [BMI] 31.0-31.9, adult
CPT/HCPCS: 36415; 71045; 75989; 80053; 81001; 82533; 82948; 83605; 83735; 83880; 84484; 85018; 85025; 85610; 85730; 86886; 86900; 86901; 86920; 87040; 87081; 87086; 92526; 93005; 96361; 96374; 97112; 97163-GP; 97530; 99291; C9113; J0278; J1644; J1815; J1956; J2001; J2185; J2250; J2270; J2405; J2543; J2920; J3010; J3475; J3480; J3490; J7030; J7060; P9016; P9041; P9046